=== PATIENT | female | born 1955 | race Caucasian/White ===

== ENCOUNTER → 2017-12-01 09:46 | Outpatient (CLI) | payer SELFPAY ==
--- NOTE | 2017-12-01 09:54 | RAD_ITS ---
STUDY: X-RAY - LEFT ELBOW REASON FOR EXAM: Female, 62 years old. Pain left elbow TECHNIQUE: 3 view(s) of the elbow. COMPARISON: None. FINDINGS: Normal visualized humerus, radius and ulna. Normal radiocapitellar and ulnotrochlear articulations. The soft tissue structures are unremarkable. RAD/Elbow min 3 Views IMPRESSION: Normal x-ray examination of the elbow. Electronically Signed: Charlene Desir MD at 18:13 EDT Tel , Service support ,
== END ==
PROVIDERS: Family Provider Family Medicine; PCP Family Medicine; Visit Provider Family Medicine
DX: M25.522 Pain in left elbow (principal)
CPT/HCPCS: 73080

== ENCOUNTER 2025-03-01 16:49 | Emergency (ER) | payer MEDICARE, SELFPAY ==
[2025-03-01] VITALS (14 sets, daily range): BP systolic 149–196; BP diastolic 82–98; PULSE 68–81; RESP 15–16; TEMP 36.3–36.6; O2SAT 96–100; BMI 26.6
--- NOTE | 2025-03-01 18:47 | EX.ED.DYSGE1 ---
HPI History of Present Illness Chief Complaint: Hypertension Informant: patient Onset/Context/Timing Onset: Today Context: Gradual Onset Timing: Continuous Quality: Aching Location: Bilateral shoulders Worsened by: Stress Relieved by: Nothing Narrative Narrative: Patient presents with elevated blood pressures that were noticed today. Patient states she has a melanoma and was being evaluated by [facility] in [place] when they noted her blood pressure was 203 systolic. Patient states that she has had intermittent blurry vision. Patient states she is undergoing a lot of stress caring for her who has Parkinson's. Patient admits to some bilateral shoulder pain. Patient denies any shortness of breath or cough. Patient denies any nausea or vomiting. Patient admits to a mild headache. Patient also states that while she was walking the other day, she inverted her right ankle. Patient denies falling. Patient states the right ankle has become bruised and swollen. [facility] Medical History (Updated 03/01/25 @ 22:[address] Daniel Bliss DO) Melanoma Medical History no medical history Home Medications ?Medication ?Instructions ?Recorded ?Last Taken ?Type amlodipine 5 mg tablet 5 mg PO DAILY #30 tabs 03/01/25 Unknown Rx collagen miscellaneous 03/01/25 Unknown History multivitamin 1 tab PO DAILY 03/01/25 Unknown History Allergy/AdvReac Type Severity Reaction Status Date / Time No Known Allergies Allergy Verified 03/01/25 16:55 Family History no significant family his Surgical History no surgical history no surgical history Social History Smoking Status: Never smoker ROS ROS ED Constitutional Constitutional ED: Denies chills or fever(s) Eyes Eyes: Reports blurry vision; Denies change in vision ENT ENT ED: Denies rhinorrhea or sore throat Cardiovascular Cardiovascular: Denies chest pain or palpitations Respiratory/Chest Respiratory/Chest: Denies cough or dyspnea Gastrointestinal Gastrointestinal: Denies nausea or vomiting Genitourinary Genitourinary ED: Denies dysuria or hematuria Musculoskeletal Musculoskeletal: Denies back pain or neck pain Integumentary Denies abscess or rash Neurologic Neurologic: Reports headache(s); Denies weakness Allergic/Immunologic Allergic/Immunologic ED: Denies mouth swelling or urticaria EXAM Physical Exam Const Vital Signs: 03/01/25 16:50 03/01/25 18:43 03/01/25 19:15 Temperature 97.3 F L Temperature Source Temporal Pulse Rate 80 Respiratory Rate 15 Respiratory Effort Normal Non-Labored Blood Pressure 177/96 H 196/91 H Blood Pressure Mean 123 121 Pulse Ox 99 Oxygen Delivery Method Room Air 03/01/25 19:30 03/01/25 19:45 03/01/25 20:00 Temperature Temperature Source Pulse Rate 81 73 Respiratory Rate 16 16 Respiratory Effort Blood Pressure 195/95 H 181/94 H 178/88 H Blood Pressure Mean 122 123 118 Pulse Ox 100 99 Oxygen Delivery Method Room Air Room Air 03/01/25 20:15 03/01/25 20:30 03/01/25 20:45 Temperature Temperature Source Pulse Rate 68 Respiratory Rate 16 Respiratory Effort Blood Pressure 157/82 H 175/98 H 149/91 H Blood Pressure Mean 103 118 106 Pulse Ox 98 98 96 Oxygen Delivery Method Room Air Room Air Room Air 03/01/25 21:00 03/01/25 21:15 03/01/25 21:30 Temperature Temperature Source Pulse Rate 68 Respiratory Rate 16 Respiratory Effort Blood Pressure 159/83 H 156/85 H 162/92 H Blood Pressure Mean 105 104 112 Pulse Ox 99 99 99 Oxygen Delivery Method Room Air 03/01/25 21:45 03/01/25 22:00 Temperature Temperature Source Pulse Rate 74 Respiratory Rate 16 Respiratory Effort Blood Pressure 156/90 H 177/93 H Blood Pressure Mean 108 118 Pulse Ox 100 100 Oxygen Delivery Method Room Air Positive well nourished and well developed General Appearance ED: well developed and NAD HEENT Reports moist mucous membranes Neck supple and no JVD Resp normal respiratory effort and clear to auscultation bilaterally Cardio regular rate and regular rhythm GI non-tender and non-distended Palpation: soft Extremity Extremity Narrative: There is edema, ecchymosis, and mild tenderness over the right ankle. There is no obvious deformity noted. Range of motion was slightly limited in all motions of the right ankle secondary to pain. There is good pedal pulse palpated. Neuro oriented x3, CN's II-XII intact bilaterally and no sensory deficits noted Sensorium / Orientation: alert Motor Exam: strength 5/5 throughout Psych mental status grossly normal MDM MDM MDM Narrative Medical decision making narrative: Differential diagnosis includes hypertensive urgency, hypertensive emergency, cardiac dysrhythmia, cardiac ischemia, pneumonia, bronchitis, ankle sprain, ankle fracture, and anxiety. EKG will be obtained to assess for cardiac dysrhythmia and cardiac ischemia. CBC will be obtained to assess for leukocytosis and anemia. Basic metabolic profile will be obtained to assess for electrolyte abnormality and renal function. High-sensitivity troponin will be obtained to assess for cardiac ischemia. 2-hour repeat troponin will be obtained to assess for ongoing cardiac ischemia. Chest x-ray will be obtained to assess for pneumonia and bronchitis. X-rays of the right ankle will be obtained to assess for ankle fracture. History & Record Review Additional record(s) reviewed:: Prior labs Lab Data Attestation: I reviewed the patient's lab results. Lab results narrative: CBC was reviewed and was within normal limits. Basic metabolic profile was reviewed and was within normal limits. Initial high-sensitivity troponin was reviewed and was less than 6. Urinalysis was reviewed. There is no evidence of urinary tract infection or hematuria. 2-hour repeat high-sensitivity troponin was reviewed and was 7. Labs: Laboratory Results - last 24 hr 03/01/25 03/01/25 19:11 21:32 WBC 8.2 RBC 4.80 Hgb 14.2 Hct 42.2 MCV 87.9 MCH 29.6 MCHC 33.6 RDW Std Deviation 42.6 RDW Coeff of Bryon 13.2 Plt Count 360 MPV 10.1 Immature Gran % (Auto) 0.400 Neut % (Auto) 67.7 Lymph % (Auto) 23.2 Mcculloch % (Auto) 6.5 Eos % (Auto) 1.6 Baso % (Auto) 0.6 Absolute Neuts (auto) 5.5 Absolute Lymphs (auto) 1.90 Nucleated RBC % 0 Sodium 143 Potassium 4.2 Chloride 106 Carbon Dioxide 24.7 Anion Gap 12 BUN 10 Creatinine 0.66 L Estim Creat Clear Calc 58.41 Est GFR (MDRD) Non-Af 94 BUN/Creatinine Ratio 15.4 Glucose 101 H Calcium 10.5 Troponin T High Sens < 6 Troponin T Hi Sens 2 Hr 7 Urine Color Yellow Urine Clarity Clear Urine pH 7.0 Ur Specific [place] 1.010 Urine Protein Negative Urine Glucose (UA) Normal Urine Ketones Negative Urine Occult Blood Negative Urine Nitrite Negative Urine Bilirubin Negative Urine Urobilinogen Normal Ur Leukocyte Esterase Negative Urine RBC 0-5 SEEN Urine WBC 0-5 SEEN Ur Squamous Epith Cells 0-5 SEEN Urine Bacteria 0 SEEN Urine Mucus 0 SEEN Radiography Diagnostic Testing: Clinical Impression(s) from Imaging Studies Ankle X-Ray 03/01/25 19:18 IMPRESSION: Acute nondisplaced fracture of the lateral malleolus. Reading Location: [facility] Chest X-Ray 03/01/25 19:18 IMPRESSION: No acute cardiopulmonary disease. Reading Location: [facility] X-rays of the right ankle were obtained. There is a nondisplaced fracture of the distal lateral malleolus. There is soft tissue swelling noted. Radiologist also interpreted the x-rays and agrees. PA and lateral chest x-ray was obtained. There are 2 views. On my independent interpretation, lung servin are clear. There is normal cardiac silhouette. Bony thorax is normal. There is no acute process noted. Radiologist also interpreted the x-ray and agrees. EKG Initial EKG: Attestation: I personally reviewed and interpreted this EKG as follows: Interpretation: Sinus Rhythm (90) and No Acute Injury Pattern Comments: EKG was obtained. On my independent interpretation, it showed a normal sinus rhythm with a rate of 90. IA interval, QRS interval, and QTc intervals were all normal. Marshall was normal. There are no acute ST or T wave changes. Prior EKG tracings: not available for review Prior: No Prior Treatment and Re-Evaluation :: Patient was given a dose of clonidine here. Patient's blood pressure improved after this. Patient was advised of the findings. Patient was given a walking boot. Patient was instructed to ice and elevate the right ankle. Patient was given a prescription for amlodipine. Patient was instructed to follow-up with a primary care physician as scheduled. Patient was instructed to return if worse in any way. Patient understood and was agreeable with plan. All questions were answered. Discharge Plan Triage Chief Complaint: Hypertension ED Provider: Daniel Bliss Dx/Rx/DC Orders Clinical Impression: Elevated blood pressure reading, Closed fracture of distal end of right fibula Instructions: ED High Blood Pressure Hypertension, ED Ankle Fracture, Distal Fibula Prescriptions: New amlodipine 5 mg tablet 5 mg PO DAILY Qty: 30 0RF No Action collagen miscellaneous multivitamin Tablet 1 tab PO DAILY Primary Care Provider: Daniel Brooke Referrals: Daniel Brooke MD [Primary Care Provider, [facility]] - Keep Chloe appointment John Fatima MD [Non-Staff, [facility]] - Keep Chloe appointment Print Language: Albanian Disposition Disposition: Home, Self Care
--- NOTE | 2025-03-01 18:55 | EKG12_ITS ---
Test Reason : HTN Blood Pressure : */* mmHG Vent. Rate : 90 BPM Atrial Rate : 90 BPM P-R Int : 154 ms QRS Dur : 70 ms QT Int : 358 ms P-R-T Axes : 62 35 56 degrees QTcB Int : 437 ms Normal sinus rhythm Normal ECG Confirmed by KENNEDY SANTIAGO, CLEMENTINA ([id number]), manager editorial LYLE SHETTY ([id number]) on 03/06/2025 6:22:47 AM Referred By: Confirmed By: CLEMENTINA BENAVIDES MD
--- NOTE | 2025-03-01 19:18 | RAD_ITS ---
PROCEDURE: CHEST PA AND LATERAL 03/01/2025 REASON FOR EXAM: HYPERTENSION TECHNIQUE: Procedure Code: RADCXR Modality: DX Procedure: CHEST PA AND LATERAL COMPARISON: None. FINDINGS: Lungs/Pleura: Clear. Heart/Mediastinum: Normal in size. Bones/Soft tissues: Multilevel degenerative changes of the spine. RAD/Chest PA and Lateral IMPRESSION: No acute cardiopulmonary disease. Reading Location: [id number]
--- NOTE | 2025-03-01 19:18 | RAD_ITS ---
PROCEDURE: RIGHT ANKLE MIN 3 VIEWS 03/01/2025 REASON FOR EXAM: INJURY/PAIN TECHNIQUE: Procedure Code: RADANK Modality: DX Procedure: ANKLE MIN 3 VIEWS Laterality: Right COMPARISON: None. FINDINGS: Subtle acute nondisplaced fracture of the lateral malleolus. No additional acute fracture or dislocation visualized. Congruent ankle mortise. Preserved visualized joint spaces. Soft tissue swelling about the ankle predominantly at the lateral aspect. RAD/Ankle min 3 Views IMPRESSION: Acute nondisplaced fracture of the lateral malleolus. Reading Location: [id number]
[2025-03-01 19:33] LABS: Mucous, Urine 0 SEEN /hpf (<or=2+)
--- OUTSIDE RECORDS SUMMARY | 2025-03-01 19:41 | XMS RPT_ITS | CCD ---
Author Organization [facility] Care Team Providers Care Financial Sales Advisor Name Role Phone Romana Morse Unavailable Unavailable Romana Morse Unavailable Unavailable John Fatima Unavailable Unavailable Problems Problem Classification Problem Date Documented Da te Episodic/Chronic Other non-traumatic joint disorders (1 source) Pain in left elbow; Translations: [M25.522 - Pain in left elbow] Onset: 12-01-2017 Episodic Results Test Name Value Interpretation Reference Range Facil ity Elbow min 3 Viewson 12-02-19 18 Elbow min [address] [id number] min 3 ViewsMR#: [id number] Acct: [id number]: GRECIA UMANZOR Rep #: [id number]: 1955 F 62 From: Charlene Desir MDPCP: John Fatima MD Status: REG CLIStudy: Elbow min 3 Views Date of Exam: 12/01/17Exam# [id number] Ordering Dr: Romana Morse MDSTUDY: X-RAY - LEFT ELBOWREASON FOR EXAM: Female, 62 years old. Pain left elbowTECHNIQUE: 3 view(s) of the elbow.COMPARISON: None. FINDIN GS:Normal visualized humerus, radius and ulna. Normal radiocapitellar andulnotrochlear articulations.The soft tissue structures are unremarkable. __ORDER #: [id number] RAD/Elbow min 3 ViewsIMPRESSION:Normal x-ray examination of the elbow.Electronically Signed:Charlene Desir MD at 18:13 EDTTel , Service support , [place]: Romana Morse MD; John Fatima MD Ledger Clerk:Signed Normal [facility] Encounters Encounter Date Encounter Type Care Provider Facility Start: 12-01-2017 Patient encounter Romana Morse Facil ity:[facility] Payers Date Payer Category Payer Self-pay Summary Purpose Family History No Family History Records Found Advance Directives No Advanced Directives Records Found Additional Source Comments INFORMATION SOURCE (unrecogn ized section and content) DATE CREATED AUTHOR 12/20/2017 [facility] FOR RECORDS PERTAINING TO PATIENTS WHO ARE OR HAVE BEEN ENROLLED IN A CHEMICAL DEPENDENCY/SUBSTANCEABUSE PROGRAM, SOME INFORMATION MAY BE OMITTED. This clinical summary was aggregated from multiple sources. Caution should be exercised in using it in the provision of clinical care. This summary normalizes information from multiple sources, and as a consequence, information in this document may materially change the coding, format and clinical context of patient data. In addition, data may be omitted in some cases. CLINICAL DECISIONS SHOULD BE BASED ON THE PRIMARY CLINICAL RECORDS. [employer] provides no warranty or guarantee of the accuracy or completeness of information in this document.
[2025-03-01 19:44] LABS: Hematocrit 42.2 % (37-47); Hemoglobin 14.2 g/dL (12.0-15.0); Immature Granulocytes Count 0.030 X10^3/uL (0.0-0.0); Mean Corp Hgb Conc 33.6 g/dL (32-36); Mean Corpuscular Volume 87.9 fL (81-99); Mean Platelet Vol. 10.1 fl (6.2-12.0); NRBC Flagged by Analyzer 0 % (0-5); Platelet Count 360 K/mm3 (150-450); RBC Distribution Width CV 13.2 % (11.6-14.6); RBC Distribution Width SD 42.6 fl (35.1-43.9); Red Blood Count 4.80 M/mm3 (4.2-5.4); White Blood Count 8.2 K/mm3 (4.4-11.0)
[2025-03-01 20:15] LABS: Anion Gap 12 (5-15); BUN 10 mg/dL (4-19); BUN/Creat Ratio 15.4 RATIO (10-20); Calcium,Total 10.5 mg/dL (7.6-11.0); Carbon Dioxide 24.7 mmol/L (21.0-32.0); Chloride 106 mmol/L (98-108); Estimated Creatinine Clearance 58.41 ml/min (50-250); Glucose 101 mg/dL (70-99); Potassium 4.2 mmol/L (3.3-5.1)
[2025-03-01 20:27] LABS: Troponin T High Sensitivity < 6 ng/L (<=14)
[2025-03-01 21:03] LABS: Color, Urine Yellow (Yellow); Glucose, Dipstick Normal (Normal); Ketone-Dipstick Negative (Negative); Leukocyte Esterase-Dipstick Negative /ul (Negative); Nitrite-Dipstick Negative (Negative); Occult Blood-Urine Negative /ul (Negative); Protein-Dipstick Negative (Negative); Specific Gravity, Urine 1.010 (1.002-1.030); Urine Bilirubin Dipstick Negative (Negative)
[2025-03-01 21:55] LABS: Red Blood Cells-Urine 0-5 SEEN /hpf (0-5); Squamous Epithelial Cells - UA 0-5 SEEN /hpf (5-10)
[2025-03-01 22:02] LABS: Troponin T High Sens 2 HR 7 ng/L (<=14)
== END 2025-03-01 22:43 | disposition home or self-care (01) ==
PROVIDERS: Emergency Provider Emergency Medicine; PCP Family Medicine; Visit Provider Emergency Medicine
DX: S82.64XA Nondisplaced fracture of lateral malleolus of right fibula, initial encounter for closed fracture (principal); M25.512 Pain in left shoulder; M25.511 Pain in right shoulder; R51.9 Headache, unspecified; Z79.899 Other long term (current) drug therapy; X58.XXXA Exposure to other specified factors, initial encounter; Z63.6 Dependent relative needing care at home
CPT/HCPCS: 71046; 73610; 80048; 81001; 84484; 85025; 93005; 99284; A4216